=== PATIENT | female | born 1980 | race Caucasian/White ===

== ENCOUNTER 2017-12-23 08:43 | Emergency (ER) | payer MEDICAID ==
[2017-08-04 05:30] VITALS: Wt 112.9 kg
[~2017-12-23 08:43] MED LIST: ACET-1966 PO; BUTA1TAB14 PO; CEPH500T7 PO; HYDR-4309 PO; IBUP800T37 PO; ONDA4TAB PO; OXYC-865 PO; PREN-127 PO
--- NOTE | 2017-12-23 08:46 | ER Report ---
History and Physical Time Seen By MD: 08:45 HPI/ROS CHIEF COMPLAINT: Flulike symptoms, ear pain HISTORY OF PRESENT ILLNESS: Patient is 22 days of cough congestion and ear pain bilaterally and throat pain. Positive ill contacts at home which is a 4-month- old infant. Patient does not have a thermometer but reports subjective fevers. She denies chest pain she denies abdominal pain nausea vomiting or diarrhea. Allergies: Coded Allergies: No Known Drug Allergies (Unverified , 12/23/17) Home Meds Discontinued Reported Medications Vits W-Ca,Fe,Fa(<1MG) ( VITAMINS) 1 Each Tablet, 1 EACH PO DAILY, TAB 03/25/17 Discontinued Scripts Oxycodone Hcl/Acetaminophen (PERCOCET 5-325 MG TABLET) 1 Each Tablet, 1-2 TAB PO Q4H Y for pain, #40 TAB 0 Refills Prov:RADHA SNOW MD 08/04/17 Ibuprofen (IBUPROFEN) 800 Mg Tablet, 1 TAB PO Q8H Y for pain, #40 TAB 0 Refills TAKE WITH FOOD EVERY 8 HOURS Prov:RADHA SNOW MD 08/04/17 Hx Smoking: No Smoking Status: Never Smoker Exposure to Second Hand Smoke?: No Hx Substance Use Disorder: No Hx Alcohol Use: No Constitutional Vital Sign - Last 24 Hours 12/23/17 08:58 Temp 96.9 Pulse 106 Resp 14 B/P (MAP) 151/102 Pulse Ox 96 O2 Delivery Room Air Physical Exam General Appearance: The patient is alert, has no immediate need for airway protection and no current signs of toxicity. Eyes: Pupils equal and round no injection. Respiratory: Chest is non tender, lungs are clear to auscultation. Cardiac: regular rate and rhythm Gastrointestinal: Abdomen is soft and non tender, no masses, bowel sounds normal. Musculoskeletal: Neck: Neck is supple and non tender. Extremities have full range of motion and are non tender. Skin: No rashes or lesions. Medical Decision Making Data Points Laboratory Hematology Test 12/23/17 09:02 12/23/17 09:09 Influenza Virus Type A (PCR) Negative (NEGATIVE) Influenza Virus Type B (PCR) Negative (NEGATIVE) Group A Streptococcus Screen Negative (NEGATIVE) Chemistry Test 12/23/17 09:02 12/23/17 09:09 Influenza Virus Type A (PCR) Negative (NEGATIVE) Influenza Virus Type B (PCR) Negative (NEGATIVE) Group A Streptococcus Screen Negative (NEGATIVE) ED Course/Re-evaluation ED Course 12/23/2017 9:50:22 am suspect patient with viral upper respiratory infection influenza and rapid strep negative. Plan will be continued Motrin Tylenol at home. Decision to Disposition Date: Dec 23, 2017 Decision to Disposition Time: 09:51 Depart Departure Latest Vital Signs Vital Signs Date Time Temp Pulse Resp B/P (MAP) Pulse Ox O2 Delivery O2 Flow Rate FiO2 12/23/17 08:58 96.9 106 14 151/102 96 Room Air Impression: Primary Impression: Viral upper respiratory illness Condition: Improved Disposition: HOME OR SELF-CARE Referrals: RADHA SNOW MD (PCP) Departure Forms: ER Transition Record, Medications Reconciliation, Off Work/ School Form, School or Work Release?: Work Number of days to be released: 1 Patient Portal Information Patient Instructions: Upper Respiratory Infection (ED) DEBBIE SOLIZ MD Dec 23, 2017 08:46
[2017-12-23 08:58] VITALS: BP 151/102
== END 2017-12-23 10:00 | disposition home or self-care (01) ==
LOC: ER 08:45
DX: J06.9 Acute upper respiratory infection, unspecified (principal)
CPT/HCPCS: 87081; 87502; 87880; 99283

== ENCOUNTER 2017-12-28 17:06 | Emergency (ER) | payer MEDICAID ==
[2017-08-04 05:30] VITALS: Wt 106.1 kg
--- NOTE | 2017-12-28 17:56 | RADIOLOGY IMAGING REPORT ---
[place] [facility] [place] NAME: Annette Raza : 1980 MR: [id number] V: [id number] EXAM DATE: ORDERING PHYSICIAN: VIOLETTE ABEL TECHNOLOGIST: Location: [facility] - [place] Patient: Annette Raza : 1980 Visit/Account:[id number] Date of Sevice: 12/28/2017 Technique: CHEST PA AND LAT HISTORY: Cough, fever Comparison studies: None FINDINGS: There is a low degree of inspiratory effort. No lobar airspace consolidation. There is mild central peribronchial thickening. The cardiac silhouette is unremarkable. IMPRESSION: 1. Mild central peribronchial thickening which can been seen in the setting of bronchitis, asthma or tobacco usage. Report Dictated By: Manuel Brooks DO at 12/28/2017 5:49 PM Report E-Signed By: Manuel Brooks DO at 12/28/2017 5:50 PM [id number]
[2017-12-28] MEDS ORDERED: BENZ100C4 PO (18:20)
[2017-12-28] MEDS ORDERED: ALB18R INH (18:20)
--- NOTE | 2017-12-28 18:22 | ER Report ---
History and Physical Time Seen By MD: 17:05 Hx. of Stated Complaint: PATIENT WAS SEEN TUESDAY AND DIAGNOSED WITH RESPIRATORY INFECTION. PATIENT REPORTS THAT SHE HAS NOT GOTTEN ANY BETTER AND IS HAVING PAIN WITH COUGHING AND INSPIRATION HPI/ROS CHIEF COMPLAINT: Cough, fever HISTORY OF PRESENT ILLNESS: Patient is a 37-year-old female who presents the ED with complaint of cough and fever, congestion, sore throat, bilateral otalgia for the past week. She states that she was seen in the emergency department 5 days ago and did have influenza and strep screen that was negative. She states that her significant other was also seen at the emergency department and diagnosed with influenza B. She states that she has been around multiple ill contacts with very similar symptoms. She has not been taking any medication for this. She has noted some slight shortness of breath intermittently. REVIEW OF SYSTEMS: Constitutional: No fever, no chills. Eyes: No discharge. ENT: See history of present illness. Cardiovascular: No chest pain, no palpitations. Respiratory: See history of present illness. Gastrointestinal: No abdominal pain, no vomiting. Skin: No rashes. Neurological: No headache. Allergies: Coded Allergies: No Known Drug Allergies (Unverified , 12/23/17) Home Meds Active Scripts Albuterol Sulfate (VENTOLIN HFA) 18 Gm Inh, 2 PUFF INH Q4-6H Y for SHORTNESS OF BREATH, #1 INH Prov:VIOLETTE ABEL PA-C 12/28/17 Benzonatate 100 Mg Cap (TESSALON PERLE 100 MG CAP) 100 Mg Capsule, 100 MG PO TID Y for COUGH, #15 CAP Prov:VIOLETTE ABEL PA-C 12/28/17 Discontinued Reported Medications Vits W-Ca,Fe,Fa(<1MG) ( VITAMINS) 1 Each Tablet, 1 EACH PO DAILY, TAB 03/25/17 Discontinued Scripts Oxycodone Hcl/Acetaminophen (PERCOCET 5-325 MG TABLET) 1 Each Tablet, 1-2 TAB PO Q4H Y for pain, #40 TAB 0 Refills Prov:RADHA SNOW MD 08/04/17 Ibuprofen (IBUPROFEN) 800 Mg Tablet, 1 TAB PO Q8H Y for pain, #40 TAB 0 Refills TAKE WITH FOOD EVERY 8 HOURS Prov:RADHA SNOW MD 10/5/17 Reviewed Nurses Notes: Yes Old Medical Records Reviewed: Yes Hx Smoking: No Smoking Status: Never Smoker Exposure to Second Hand Smoke?: No Hx Substance Use Disorder: No Hx Alcohol Use: No Constitutional Vital Sign - Last 24 Hours 12/28/17 12/28/17 12/28/17 17:12 18:23 18:34 Temp 100.4 99.5 99.0 Pulse 110 98 Resp 20 B/P (MAP) 160/95 144/80 (101) Pulse Ox 94 91 O2 Delivery Room Air Room Air Physical Exam General Appearance: The patient is alert, has no immediate need for airway protection and no signs of toxicity. Patient appears to be no acute distress. Eyes: Pupils equal and round no pallor or injection. ENT, Mouth: Mucous membranes are moist. Respiratory: There are no retractions, lungs are clear to auscultation. Cardiovascular: Regular rate and rhythm. Gastrointestinal: Abdomen is soft and non tender, no masses, bowel sounds normal. Skin: Warm and dry, no rashes. Musculoskeletal: Neck is supple non tender. Extremities are nontender, nonswollen and have full range of motion. DIFFERENTIAL DIAGNOSIS: After history and physical exam differential diagnosis was considered for, congestion including pneumonia, influenza, upper respiratory infection, PE. Medical Decision Making EKG/Imaging Imaging CXR: IMPRESSION: 1. Mild central peribronchial thickening which can been seen in the setting of bronchitis, asthma or tobacco usage. Report Dictated By: Manuel Brooks DO at 12/28/2017 5:49 PM Report E-Signed By: Manuel Brooks DO at 12/28/2017 5:50 PM ED Course/Re-evaluation ED Course Will obtain chest x-ray. Discussed chest x-ray results with patient which is only significant for some bronchial inflammation. Given that her significant other was positive for influenza B it is likely that she also had then just had a false negative on her initial test. Will prescribe her some albuterol and Tessalon Perles to help with coughing. Decision to Disposition Date: Dec 28, 2017 Decision to Disposition Time: 18:40 Depart Departure Latest Vital Signs Vital Signs Date Time Temp Pulse Resp B/P (MAP) Pulse Ox O2 Delivery O2 Flow Rate FiO2 12/28/17 18:34 99.0 12/28/17 18:23 98 144/80 (101) 91 Room Air 12/28/17 17:12 20 Impression: Primary Impression: Upper respiratory infection Condition: Improved Disposition: HOME OR SELF-CARE Referrals: RADHA SNOW MD (PCP) New Scripts Albuterol Sulfate (VENTOLIN HFA) 18 Gm Inh 2 PUFF INH Q4-6H Y for SHORTNESS OF BREATH, #1 INH Prov: VIOLETTE ABEL PA-C 12/28/17 Benzonatate 100 Mg Cap (TESSALON PERLE 100 MG CAP) 100 Mg Capsule 100 MG PO TID Y for COUGH, #15 CAP Prov: VIOLETTE ABEL PA-C 12/28/17 Patient Instructions: Upper Respiratory Infection (ED) Additional Instructions: Stay well-hydrated. Follow-up with primary care provider in 2-3 days. If having any worsening or concerning symptoms may return to the emergency department. Problem Qualifiers Primary Impression: Upper respiratory infection URI type: unspecified URI Qualified Codes: J06.9 - Acute upper respiratory infection, unspecified VIOLETTE ABEL PA-C Dec 28, 2017 18:22
[2017-12-28 18:23] VITALS: BP 144/80
== END 2017-12-28 18:35 | disposition home or self-care (01) ==
LOC: ER 17:28
DX: J06.9 Acute upper respiratory infection, unspecified (principal)
CPT/HCPCS: 71046; 99283

== ENCOUNTER 2018-03-18 04:06 | Emergency (ER) | payer MEDICAID ==
[2017-08-04 05:30] VITALS: Wt 107.0 kg
[~2018-03-18 04:06] MED LIST changes: +ALB18R INH; +BENZ100C4 PO
--- NOTE | 2018-03-18 04:08 | ER Report ---
History and Physical Time Seen By MD: 04:08 FEI/SUNSHINE CHIEF COMPLAINT: Headache HISTORY OF PRESENT ILLNESS: 31 [id number] female presents with 2 days of severe headache. She describes it as bright frontal and throbbing. She denies history of migraine headaches per she's not had headaches that this before. She denies recent illness fever chills or vomiting. She denies stiff neck or photophobia. REVIEW OF SYSTEMS: Respiratory: No cough, no dyspnea. Cardiovascular: No chest pain, no palpitations. Gastrointestinal: No vomiting, no abdominal pain. Musculoskeletal: No back pain. Allergies: Coded Allergies: No Known Drug Allergies (Unverified , 03/18/18) Home Meds Active Scripts Ondansetron Hcl (ZOFRAN) 4 Mg Tablet, 4 MG PO Q6H Y for NAUSEA/VOMITING, #12 Prov:AUBREY BURRELL DO 03/18/18 Tramadol Hcl (TRAMADOL HCL) 50 Mg Tablet, 1 TAB PO Q6H Y for PAIN, #15 MG TAKE ONE TO TWO TABLETS BY MOUTH EVERY FOUR TO SIX HOURS NEEDED Prov:AUBREY BURRELL 03/18/18 Discontinued Scripts Albuterol Sulfate (VENTOLIN HFA) 18 Gm Inh, 2 PUFF INH Q4-6H Y for SHORTNESS OF BREATH, #1 INH Prov:VIOLETTE ABEL PA-C 12/28/17 Benzonatate 100 Mg Cap (TESSALON PERLE 100 MG CAP) 100 Mg Capsule, 100 MG PO TID Y for COUGH, #15 CAP Prov:VIOLETTE ABEL PA-C 12/28/17 Reviewed Nurses Notes: Yes Old Medical Records Reviewed: Yes Hx Smoking: No Smoking Status: Never Smoker Exposure to Second Hand Smoke?: No Hx Substance Use Disorder: No Hx Alcohol Use: No Constitutional Vital Sign - Last 24 Hours 03/18/18 03/18/18 03/18/18 03/18/18 04:12 04:13 04:30 04:51 Temp 97.9 Pulse 71 72 Resp 18 B/P (MAP) 164/107 (126) 164/107 168/107 (127) Pulse Ox 96 95 O2 Delivery Room Air 03/18/18 03/18/18 03/18/18 03/18/18 05:00 05:05 05:20 05:30 Pulse 70 83 B/P (MAP) 147/74 (98) 141/83 (102) Pulse Ox 95 03/18/18 05:35 Pulse 75 Pulse Ox 94 Physical Exam General Appearance: The patient is alert, has no immediate need for airway protection and no current signs of toxicity. Mild distress, vital signs stable , afebrile, pulse ox normal HEENT: Pupils equal and round no injection. PERRLA, EOMI, negative photophobia TMs normal, oropharynx no redness or exudate, mucous. Membranes are moist Respiratory: Chest is non tender, lungs are clear to auscultation. Cardiac: regular rate and rhythm Gastrointestinal: Abdomen is soft and non tender, no masses, bowel sounds normal. Musculoskeletal: Neck: Neck is supple and non tender. No lymphadenopathy, no meningismus Extremities have full range of motion and are non tender. Skin: No rashes or lesions. 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 Medical Decision Making Data Points Laboratory Hematology Test 03/18/18 04:10 Urine Color Straw Urine Clarity Clear Urine pH 7.0 pH (4.8-9.5) Urine Specific [place] 1.005 Urine Protein Negative mg/dL (NEGATIVE) Urine Glucose (UA) Negative mg/dL (NEGATIVE) Urine Ketones Negative mg/dL (NEGATIVE) Urine Blood Small (NEGATIVE) Urine Nitrite Negative (NEGATIVE) Urine Bilirubin Negative (NEGATIVE) Urine Urobilinogen Negative mg/dL (0.2-1.9) Urine Leukocyte Esterase Negative (NEGATIVE) Urine RBC 6 /HPF (0-2/HPF) Urine WBC <1 /HPF (0-5/HPF) Urine Squamous Epithelial Cells Few /LPF (</=FEW) Urine Bacteria Negative /HPF (NONE-FEW) Urine Mucus None /HPF (NONE-FEW) Urine HCG, Qualitative Negative (NEGATIVE) Chemistry Test 03/18/18 04:10 Urine Color Straw Urine Clarity Clear Urine pH 7.0 pH (4.8-9.5) Urine Specific [place] 1.005 Urine Protein Negative mg/dL (NEGATIVE) Urine Glucose (UA) Negative mg/dL (NEGATIVE) Urine Ketones Negative mg/dL (NEGATIVE) Urine Blood Small (NEGATIVE) Urine Nitrite Negative (NEGATIVE) Urine Bilirubin Negative (NEGATIVE) Urine Urobilinogen Negative mg/dL (0.2-1.9) Urine Leukocyte Esterase Negative (NEGATIVE) Urine RBC 6 /HPF (0-2/HPF) Urine WBC <1 /HPF (0-5/HPF) Urine Squamous Epithelial Cells Few /LPF (</=FEW) Urine Bacteria Negative /HPF (NONE-FEW) Urine Mucus None /HPF (NONE-FEW) Urine HCG, Qualitative Negative (NEGATIVE) Urinalysis Test 03/18/18 04:10 Urine Color Straw Urine Clarity Clear Urine pH 7.0 pH (4.8-9.5) Urine Specific [place] 1.005 Urine Protein Negative mg/dL (NEGATIVE) Urine Glucose (UA) Negative mg/dL (NEGATIVE) Urine Ketones Negative mg/dL (NEGATIVE) Urine Blood Small (NEGATIVE) Urine Nitrite Negative (NEGATIVE) Urine Bilirubin Negative (NEGATIVE) Urine Urobilinogen Negative mg/dL (0.2-1.9) Urine Leukocyte Esterase Negative (NEGATIVE) Urine RBC 6 /HPF (0-2/HPF) Urine WBC <1 /HPF (0-5/HPF) Urine Squamous Epithelial Cells Few /LPF (</=FEW) Urine Bacteria Negative /HPF (NONE-FEW) Urine Mucus None /HPF (NONE-FEW) Urine HCG, Qualitative Negative (NEGATIVE) EKG/Imaging Monitor Interpretation: Atrial Flutter Imaging Results: CT scan of the head was obtained. The results of the study are The study was read by the radiologist. I viewed the images myself on the PACS system. ED Course/Re-evaluation ED Course Patient was admitted to an examination room. H&P was done. The dental diagnoses was considered. Patient with a nonfocal neurologic examination. Patient was medicated for her symptoms. A CAT scan of her head was performed to rule out serious pathology. It was unremarkable the results are discussed with her. She'll be discharged home with a limited supply of medication to control nausea and pain. Patient advised to follow-up with primary care if unimproved in 3-5 days. Decision to Disposition Date: March 18, 2018 Decision to Disposition Time: 05:24 Depart Departure Latest Vital Signs Vital Signs Date Time Temp Pulse Resp B/P (MAP) Pulse Ox O2 Delivery O2 Flow Rate FiO2 03/18/18 05:35 75 94 03/18/18 05:30 141/83 (102) 03/18/18 04:13 97.9 18 Room Air Impression: Primary Impression: Headache Additional Impression: Abdominal pain Condition: Improved Disposition: HOME OR SELF-CARE Referrals: RADHA SNOW MD (PCP) MONICA TEIXEIRA MD New Scripts Ondansetron Hcl (ZOFRAN) 4 Mg Tablet 4 MG PO Q6H Y for NAUSEA/VOMITING, #12 Prov: AUBREY BURRELL DO 03/18/18 Tramadol Hcl (TRAMADOL HCL) 50 Mg Tablet 1 TAB PO Q6H Y for PAIN, #15 MG TAKE ONE TO TWO TABLETS BY MOUTH EVERY FOUR TO SIX HOURS NEEDED Prov: AUBREY BURRELL DO 03/18/18 Patient Instructions: Acute Abdominal Pain (GEN), Acute Headache (ED) Additional Instructions: Take Mucinex D for several days Follow-up with your primary care physician if unimproved in 3-5 days Problem Qualifiers Primary Impression: Headache Headache type: unspecified Headache chronicity pattern: acute headache Intractability: intractable Qualified Codes: R51 - Headache Additional Impression: Abdominal pain Abdominal location: lower abdomen, unspecified Qualified Codes: R10.30 - Lower abdominal pain, unspecified AUBREY BURRELL DO March 18, 2018 04:08
[2018-03-18] MEDS ORDERED: IBUPROFEN 600 MG TAB PO ONE (04:25)
[2018-03-18] MEDS ORDERED: DEXAMETHASONE 4 MG TAB PO ONE (04:25)
[2018-03-18] MEDS ORDERED: ONDANSETRON 4 MG ODT TABDP SL ONE (04:25)
[2018-03-18] MEDS ORDERED: APAP/HYDROCODONE 325/5 TAB PO ONE (04:25)
[2018-03-18] MEDS ORDERED: PROMETHAZINE HCL 25 MG TAB PO ONE (04:25)
--- NOTE | 2018-03-18 05:01 | RADIOLOGY IMAGING REPORT ---
FACILITY: [facility] PATIENT NAME: Annette Raza : 1980 MR: [id number] V: [id number] EXAM DATE: ORDERING PHYSICIAN: AUBREY BURRELL TECHNOLOGIST: [place] [facility] [place]: Annette Raza : 1980 Visit/Account:[id number] Date of Sevice: 03/18/2018 CT Head without contrast Indication: Headache. Comparison: None available. Technique: Axial CT images were obtained through the brain from the skull base to the vertex without administration of IV contrast. One of the following dose optimization techniques was utilized in th e performance of this exam: Automated exposure control; adjustment of the mA and/or kV according to t he patient's size; or use of an iterative reconstruction technique. Specific details can be referen corby in the facility's radiology CT exam operational policy. Findings: No evidence of mass, mass effect, or midline shift. No acute intracranial hemorrhage or acute territorial infarction. There is a small calcification in the left caudate. Skull is nonacute. Globes and orbits are normal. Mild mucosal thickening in the right The visualized paranasal sinuses and mastoid air spaces are othe rwise clear. IMPRESSION: 1. No acute intracranial abnormality. 2. Small calcification in the left caudate could be related to prior infectious or inflammatory proc ess such as neurocysticercosis. Report Dictated By: Pedro Linares MD at 03/18/2018 4:52 AM Report E-Signed By: Pedro Linares MD at 03/18/2018 4:57 AM WSN:[id number]
[2018-03-18 05:30] VITALS: BP 141/83
[2018-03-18] MEDS ORDERED: TRAM-420 PO (05:30)
[2018-03-18] MEDS ORDERED: ONDA4TAB97 PO (05:30)
== END 2018-03-18 05:42 | disposition home or self-care (01) ==
LOC: ER 04:17
DX: R51 Headache (principal); R10.30 Lower abdominal pain, unspecified
CPT/HCPCS: 70450; 81001; 81025; 99283; J8540; Q0169; S0119

== ENCOUNTER 2018-04-29 13:45 | Emergency (ER) | payer MEDICAID ==
[2017-08-04 05:30] VITALS: Wt 107.0 kg
[~2018-04-29 13:45] MED LIST changes: +ONDA4TAB97 PO; +TRAM-420 PO
--- NOTE | 2018-04-29 14:05 | ER Report ---
History and Physical Time Seen By MD: 13:55 Hx. of Stated Complaint: LEFT KNEE PAIN FOR A WEEK HPI/ROS CHIEF COMPLAINT: Left knee pain HISTORY OF PRESENT ILLNESS: Patient is a 37-year-old female who presents the ED with complaint of left knee pain. She states that she has noticed this for the past 3-4 days. She denies any acute injury. She states that the knee just feels unstable to her. She has not been applying any test conductor ice. She has not taken any medication for this. She denies any previous injury or fracture to this left knee. REVIEW OF SYSTEMS: Constitutional: No fever, no chills Cardiovascular: No chest pain, no palpitations. Respiratory: No cough, no shortness of breath. Musculoskeletal: See history of present illness. Skin: No rashes. Neurological: No headache. Allergies: Coded Allergies: No Known Drug Allergies (Unverified , 04/29/18) Home Meds Discontinued Scripts Ondansetron Hcl (ZOFRAN) 4 Mg Tablet, 4 MG PO Q6H Y for NAUSEA/VOMITING, #12 Prov:AUBREY BURRELL DO 03/18/18 Tramadol Hcl (TRAMADOL HCL) 50 Mg Tablet, 1 TAB PO Q6H Y for PAIN, #15 MG TAKE ONE TO TWO TABLETS BY MOUTH EVERY FOUR TO SIX HOURS NEEDED Prov:AUBREY BURRELL DO 03/18/18 Reviewed Nurses Notes: Yes Old Medical Records Reviewed: Yes Hx Smoking: No Smoking Status: Never Smoker Exposure to Second Hand Smoke?: No Hx Substance Use Disorder: No Hx Alcohol Use: No Constitutional Vital Sign - Last 24 Hours 04/29/18 13:50 Temp 97.9 Pulse 80 Resp 14 B/P (MAP) 158/97 Pulse Ox 95 O2 Delivery Room Air Physical Exam General Appearance: The patient is alert, has no immediate need for airway protection and no signs of toxicity. Patient appears to be in no acute distress. Respiratory: There are no retractions, lungs are clear to auscultation. Cardiovascular: Regular rate and rhythm. Skin: Warm and dry, no rashes. Musculoskeletal: Neck is supple non tender. There is left superior and lateral knee pain with palpation. Negative anterior and posterior drawer sign. Negative varus and valgus stress test. Negative Wilfrid's exam. PT and DP pulses are 2+ with normal capillary refill. Normal sensation. DIFFERENTIAL DIAGNOSIS: After history and physical exam differential diagnosis was considered for left knee injury including fracture, sprain, contusion. Medical Decision Making EKG/Imaging Imaging Left Knee Xrays: IMPRESSION: 1. Mild osteoarthritic changes involving the medial compartment of the left knee. 2. No acute appearing bony abnormalities. Report Dictated By: Freedom Ziegler MD at 04/29/2018 2:29 PM Report E-Signed By: Freedom Ziegler MD at 04/29/2018 2:31 PM ED Course/Re-evaluation ED Course Will obtain x-rays. 04/29/2018 2:40:56 pm - discussed imaging with patient. There appears to be no acute fracture dislocation of the left knee. She likely does have a left knee strain. Advised her to use a compression sleeve may take Tylenol or ibuprofen for pain relief. Decision to Disposition Date: Apr 29, 2018 Decision to Disposition Time: 14:41 Depart Departure Latest Vital Signs Vital Signs Date Time Temp Pulse Resp B/P (MAP) Pulse Ox O2 Delivery O2 Flow Rate FiO2 04/29/18 13:50 97.9 80 14 158/97 95 Room Air Impression: Primary Impression: Knee pain, left Condition: Improved Disposition: HOME OR SELF-CARE Referrals: RADHA SNOW MD (PCP) New Scripts No Active Prescriptions or Reported Meds Patient Instructions: Knee Pain (ED) Additional Instructions: Rest, ice, elevate. May use Tylenol or ibuprofen for pain relief. Use compression sleeve as needed. If having any worsening or concerning symptoms may return to the emergency department. Follow-up with primary care provider or orthopedics in 2-3 days. Problem Qualifiers Primary Impression: Knee pain, left Chronicity: acute Qualified Codes: M25.562 - Pain in left knee VIOLETTE ABEL PA-C Apr 29, 2018 14:05
--- NOTE | 2018-04-29 14:34 | RADIOLOGY IMAGING REPORT ---
FACILITY: [facility] PATIENT NAME: Annette Raza : 1980 MR: [id number] V: [id number] EXAM DATE: ORDERING PHYSICIAN: VIOLETTE ABEL TECHNOLOGIST: Location: [facility] - [place] Patient: Annette Raza : 1980 Visit/Account:[id number] Date of Sevice: 04/29/2018 KNEE 3 VIEW LEFT COMPARISONS: None. ADDITIONAL PERTINENT HISTORY: Left knee pain with injury in 2012 FINDINGS: Osseous structures: Mild subchondral sclerosis and osteophyte formation involving the medial compartm ent of the left knee. No bony fractures. Joint spaces: Mild joint space narrowing involving the medial compartment of the left knee. Surrounding soft tissues: Negative. IMPRESSION: 1. Mild osteoarthritic changes involving the medial compartment of the left knee. 2. No acute appearing bony abnormalities. Report Dictated By: Freedom Ziegler MD at 04/29/2018 2:29 PM Report E-Signed By: Freedom Ziegler MD at 04/29/2018 2:31 PM [id number]
[2018-04-29 14:48] VITALS: BP 139/90
== END 2018-04-29 14:40 | disposition home or self-care (01) ==
LOC: ER 13:48
DX: M25.562 Pain in left knee (principal)
CPT/HCPCS: 99283

== ENCOUNTER 2018-05-04 22:05 | Emergency (ER) | payer MEDICAID ==
[2017-08-04 05:30] VITALS: Wt 106.6 kg
--- NOTE | 2018-05-04 22:06 | ER Report ---
History and Physical Time Seen By MD: 22:06 HPI/ROS CHIEF COMPLAINT: Left-sided headache HISTORY OF PRESENT ILLNESS: Patient is a 38-year-old female here with complaints of left-sided headache which started this morning and has been persistent in spite of taking her home medications. She was previously evaluated for similar complaints however today her headache seemed to be worse, in the same distribution, associated with photosensitivity. Patient also complains of nausea with vomiting. She was treated for her headache previously and resolved. Denies fevers, neck pain, back pain, chest pain or shortness breath. CT scan was completed of the head previously and showed no intracranial abnormalities. REVIEW OF SYSTEMS: Constitutional: No fever, no chills. Eyes: No discharge, + photosensitivity ENT: No sore throat. Cardiovascular: No chest pain, no palpitations. Respiratory: No cough, no shortness of breath. Gastrointestinal: No abdominal pain, no vomiting. Genitourinary: No hematuria. Musculoskeletal: No back pain. Skin: No rashes. Neurological: + headache. Allergies: Coded Allergies: No Known Drug Allergies (Unverified , 05/04/18) Home Meds Active Scripts Ondansetron (ZOFRAN ODT) 4 Mg Tab.rapdis, 4 MG PO Q12H for 7 Days, #14 TAB.JOY Prov:PETAR CHÁVEZ DO 05/05/18 Discontinued Scripts Ondansetron Hcl (ZOFRAN) 4 Mg Tablet, 4 MG PO Q6H Y for NAUSEA/VOMITING, #12 Prov:AUBREY BURRELL DO 03/18/18 Tramadol Hcl (TRAMADOL HCL) 50 Mg Tablet, 1 TAB PO Q6H Y for PAIN, #15 MG TAKE ONE TO TWO TABLETS BY MOUTH EVERY FOUR TO SIX HOURS NEEDED Prov:AUBREY BURRELL DO 03/18/18 Hx Smoking: No Smoking Status: Never Smoker Exposure to Second Hand Smoke?: No Hx Substance Use Disorder: No Hx Alcohol Use: No Constitutional Vital Sign - Last 24 Hours 05/04/18 05/04/18 05/04/18 05/04/18 22:11 22:20 22:30 22:35 Temp 98.2 Pulse 78 79 72 Resp 20 B/P (MAP) 144/85 141/82 (101) Pulse Ox 96 96 95 O2 Delivery Room Air 05/04/18 05/04/18 05/04/1805/04/18 22:50 23:00 23:05 23:20 Pulse 73 77 76 B/P (MAP) 134/69 (90) Pulse Ox 95 94 97 05/04/18 05/04/18 05/04/18 05/05/18 23:30 23:35 23:50 00:00 Pulse 84 80 B/P (MAP) 123/92 (102) 141/98 (112) Pulse Ox 96 97 05/05/18 05/05/18 05/05/18 05/05/18 00:20 00:30 00:35 00:50 Pulse 74 78 78 B/P (MAP) 146/88 (107) Pulse Ox 95 94 95 05/05/18 05/05/18 01:00 01:20 Pulse 81 B/P (MAP) 145/87 (106) Pulse Ox 96 Physical Exam General Appearance: The patient is alert, has no immediate need for airway protection and no signs of toxicity. + moderate distress due to pain/headache Eyes: Pupils equal and round no pallor or injection. ENT, Mouth: Mucous membranes are moist. Respiratory: There are no retractions, lungs are clear to auscultation. Cardiovascular: Regular rate and rhythm. Gastrointestinal: Abdomen is soft and non tender, no masses, bowel sounds normal. Neurological: No focal deficits or weakness Skin: Warm and dry, no rashes. Musculoskeletal: Neck is supple non tender. Extremities are nontender, nonswollen and have full range of motion. DIFFERENTIAL DIAGNOSIS: After history and physical exam differential diagnosis was considered for migraine, tension headache, traumatic headache, electrolyte imbalance. Medical Decision Making EKG/Imaging Imaging CT head deferred due to recent imaging scan ED Course/Re-evaluation ED Course Patient is a 38-year-old female here with complaints of left-sided headache similar to prior headaches. Patient also has nausea, photosensitivity, vomiting associated with this. Denies fevers or chills. Patient was given migraine cocktail including fluids, Decadron, magnesium, Benadryl, Reglan with moderate relief of symptoms. Patient was advised to maintain hydration. She was also advised to follow-up with her family doctor in the next several days and return if her symptoms worsen or fail to improve. Decision to Disposition Date: May 05, 2018 Decision to Disposition Time: 01:13 Depart Departure Latest Vital Signs Vital Signs Date Time Temp Pulse Resp B/P (MAP) Pulse Ox O2 Delivery O2 Flow Rate FiO2 05/05/18 01:20 81 96 05/05/18 01:00 145/87 (106) 05/04/18 22:11 98.2 20 Room Air Impression: Primary Impression: Headache Condition: Improved Disposition: HOME OR SELF-CARE Referrals: RADHA SNOW MD (PCP) New Scripts Ondansetron (ZOFRAN ODT) 4 Mg Tab.rapdis 4 MG PO Q12H for 7 Days, #14 TAB.JOY Prov: PETAR CHÁVEZ DO 05/05/18 Patient Instructions: Acute Headache (ED), Ondansetron (By mouth, Into the mouth) Additional Instructions: You may take 1 tablet of Zofran as needed every 8-12 hours for nausea. Please follow-up with your family doctor in the next several days. If symptoms persist , he may need to be seen by neurology for more effective headache regimen. Please return if you develop fevers, neck pain, worsening headache, difficulty eating or drinking. PETAR CHÁVEZ DO May 04, 2018 22:06
[2018-05-04] MEDS ORDERED: KETOROLAC 30 MG/ML VIAL IVP ONE (23:10)
[2018-05-04] MEDS ORDERED: diphenhydrAMINE 50 MG/ML VIAL IVP ONE (23:10)
[2018-05-04] MEDS ORDERED: NS(*) 0.9% 1000 ML BAG 1,000 ML IV ONE (23:10)
[2018-05-04] MEDS ORDERED: DEXAMETHASONE SOD PHOS 10MG/ML IVP ONE (23:10)
[2018-05-04] MEDS ORDERED: METOCLOPRAMIDE 10 MG/2 ML SDV IVP ONE (23:10)
[2018-05-05] MEDS ORDERED: MAGNESIUM SUL* 2 GM/50 ML IVPB 50 ML IVPB ONE (00:20)
[2018-05-05 01:00] VITALS: BP 145/87
[2018-05-05] MEDS ORDERED: ONDA4TAB PO (01:17)
== END 2018-05-05 01:31 | disposition home or self-care (01) ==
LOC: ER 22:07
DX: R51 Headache (principal)
CPT/HCPCS: 96361; 96365; 96374; 96375; 99284; J1100; J1200; J1885; J2765; J3475; J7030

== ENCOUNTER 2018-12-21 16:17 | Emergency (ER) | payer MEDICAID ==
[2017-08-04 05:30] VITALS: BMI 39.8
[~2018-12-21 16:17] MED LIST changes: -HYDR-4309 PO; +HYDR-653 PO
--- NOTE | 2018-12-21 16:24 | ER Report ---
History and Physical Time Seen By MD: 16:24 HPI/ROS CHIEF COMPLAINT: Left-sided tender neck lymph node, midepigastric abdominal discomfort, nausea HISTORY OF PRESENT ILLNESS: Patient is a 38-year-old female here with complaints of the above. Patient reports that her symptoms started approximately 3 days ago not been intermittent. She reports that her left cervical lymph node has been swollen and tender and less mobile than the right prompting concern. Patient admits to nausea, decreased appetite, intermittent midepigastric abdominal pain with bilateral radiation which lasts for several minutes at a time. Patient reports general malaise, fatigue, subjective fevers. REVIEW OF SYSTEMS: Constitutional: + fever, no chills. Eyes: No discharge. ENT: No sore throat. + tendern cervical adenopathy Cardiovascular: No chest pain, no palpitations. Respiratory: No cough, no shortness of breath. Gastrointestinal: + epigastric abdominal pain, no vomiting. + decreased appetite Genitourinary: No hematuria. Musculoskeletal: No back pain. Skin: No rashes. Neurological: No headache. Allergies: Coded Allergies: No Known Drug Allergies (Unverified , 12/21/18) Home Meds Active Scripts Metoclopramide Hcl (REGLAN) 10 Mg Tablet, 10 MG PO Q8H for Nausea, #20 TAB Prov:PETAR CHÁVEZ DO 12/21/18 Tramadol Hcl (TRAMADOL HCL) 50 Mg Tablet, 50 MG PO Q6H PRN for PAIN, #12 TAB 0 R efills Prov:PETAR CHÁVEZ DO 12/21/18 Discontinued Scripts Ondansetron (ZOFRAN ODT) 4 Mg Tab.rapdis, 4 MG PO Q12H for 7 Days, #14 TAB.JOY Prov:PETAR CHÁVEZ DO 05/05/18 Hx Smoking: No Smoking Status: Never Smoker Exposure to Second Hand Smoke?: No Hx Substance Use Disorder: No Hx Alcohol Use: No Constitutional Vital Sign - Last 24 Hours 12/21/18 16:30 Temp 97.7 Pulse 100 Resp 13 B/P (MAP) 178/118 Pulse Ox 98 O2 Delivery Room Air Physical Exam General Appearance: The patient is alert, has no immediate need for airway protection and no signs of toxicity. NAD Eyes: Pupils equal and round no pallor or injection. ENT, Mouth: Mucous membranes are moist.+ tender cervical adenopathy worse on left Respiratory: There are no retractions, lungs are clear to auscultation. Cardiovascular: Regular rate and rhythm. Gastrointestinal: Abdomen is soft and + mildly tender in the mid epigastrium, no masses, bowel sounds normal. Neurological: No focal deficits Skin: Warm and dry, no rashes. Musculoskeletal: Neck is supple non tender. Extremities are nontender, nonswollen and have full range of motion. DIFFERENTIAL DIAGNOSIS: After history and physical exam differential diagnosis was considered for adult fever including but not limited to viral syndromes including influenza, urinary tract infection, pneumonia and sepsis, mononucleosis, pancreatitis, gastroenteritis Medical Decision Making Data Points Result Diagram: 12/21/18 1715 12/21/18 1715 Laboratory Hematology Test 12/21/18 16:43 12/21/18 17:15 12/21/18 17:51 Influenza Virus Type A (PCR) Negative (NEGATIVE) Influenza Virus Type B (PCR) Negative (NEGATIVE) Group A Streptococcus (PCR) Negative (NEGATIVE) Red Blood Count 4.67 M/uL (4.17-5.56) Mean Corpuscular Volume 85.3 fL (80.0-96.0) Mean Corpuscular Hemoglobin 28.2 pg (26.0-33.0) Mean Corpuscular Hemoglobin Concent 33.0 g/dL (32.0-36.0) Red Cell Distribution Width 15.0 % (11.5-14.5) Mean Platelet Volume 7.6 fL (7.2-11.1) Neutrophils (%) (Auto) 69.5 % (39.4-72.5) Lymphocytes (%) (Auto) 23.2 % (17.6-49.6) Monocytes (%) (Auto) 4.7 % (4.1-12.4) Eosinophils (%) (Auto) 2.0 % (0.4-6.7) Basophils (%) (Auto) 0.6 % (0.3-1.4) Nucleated RBC Relative Count (auto) 0.0 /100WBC Neutrophils # (Auto) 8.4 K/uL (2.0-7.4) Lymphocytes # (Auto) 2.8 K/uL (1.3-3.6) Monocytes # (Auto) 0.6 K/uL (0.3-1.0) Eosinophils # (Auto) 0.2 K/uL (0.0-0.5) Basophils # (Auto) 0.1 K/uL (0.0-0.1) Nucleated RBC Absolute Count (auto) 0.00 K/uL Sodium Level 138 mmol/L (137-145) Potassium Level 3.6 mmol/L (3.5-5.0) Chloride Level 106 mmol/L (98-107) Carbon Dioxide Level 24 mmol/L (22-31) Blood Urea Nitrogen 8 mg/dl (7-18) Creatinine 0.60 mg/dl (0.52-1.04) Glomerular Filtration Rate Calc > 60.0 Random Glucose 117 mg/dl (75-110) Calcium Level 8.1 mg/dl (8.4-10.2) Total Bilirubin 0.3 mg/dl (0.2-1.3) Aspartate Amino Transf (AST/SGOT) 22 U/L (0-35) Alanine Aminotransferase (ALT/SGPT) 23 U/L (0-56) Alkaline Phosphatase 93 U/L (0-126) Total Protein 7.0 g/dl (6.3-8.2) Albumin 3.8 g/dl (3.5-5.0) Lipase 242 U/L (23-300) Human Chorionic Gonadotropin, Qual Negative (NEGATIVE) Monoscreen Negative (NEGATIVE) Urine Color Yellow Urine Clarity Clear Urine pH 5.0 pH (4.8-9.5) Urine Specific [place] 1.019 Urine Protein Negative mg/dL (NEGATIVE) Urine Glucose (UA) Negative mg/dL (NEGATIVE) Urine Ketones Negative mg/dL (NEGATIVE) Urine Blood Moderate (NEGATIVE) Urine Nitrite Negative (NEGATIVE) Urine Bilirubin Negative (NEGATIVE) Urine Urobilinogen Negative mg/dL (0.2-1.9) Urine Leukocyte Esterase Trace (NEGATIVE) Urine RBC 1 /HPF (0-2/HPF) Urine WBC <1 /HPF (0-5/HPF) Urine Squamous Epithelial Cells Many /LPF (</=FEW) Urine Bacteria Negative /HPF (NONE-FEW) Urine Mucus Few /HPF (NONE-FEW) Chemistry Test 12/21/18 16:43 12/21/18 17:15 12/21/18 17:51 Influenza Virus Type A (PCR) Negative (NEGATIVE) Influenza Virus Type B (PCR) Negative (NEGATIVE) Group A Streptococcus (PCR) Negative (NEGATIVE) White Blood Count 12.1 k/uL (4.5-11.0) Red Blood Count 4.67 M/uL (4.17-5.56) Hemoglobin 13.2 g/dL (12.0-16.0) Hematocrit 39.8 % (34.0-47.0) Mean Corpuscular Volume 85.3 fL (80.0-96.0) Mean Corpuscular Hemoglobin 28.2 pg (26.0-33.0) Mean Corpuscular Hemoglobin Concent 33.0 g/dL (32.0-36.0) Red Cell Distribution Width 15.0 % (11.5-14.5) Platelet Count 365 K/uL (150-450) Mean Platelet Volume 7.6 fL (7.2-11.1) Neutrophils (%) (Auto) 69.5 % (39.4-72.5) Lymphocytes (%) (Auto) 23.2 % (17.6-49.6) Monocytes (%) (Auto) 4.7 % (4.1-12.4) Eosinophils (%) (Auto) 2.0 % (0.4-6.7) Basophils (%) (Auto) 0.6 % (0.3-1.4) Nucleated RBC Relative Count (auto) 0.0 /100WBC Neutrophils # (Auto) 8.4 K/uL (2.0-7.4) Lymphocytes # (Auto) 2.8 K/uL (1.3-3.6) Monocytes # (Auto) 0.6 K/uL (0.3-1.0) Eosinophils # (Auto) 0.2 K/uL (0.0-0.5) Basophils # (Auto) 0.1 K/uL (0.0-0.1) Nucleated RBC Absolute Count (auto) 0.00 K/uL Glomerular Filtration Rate Calc > 60.0 Calcium Level 8.1 mg/dl (8.4-10.2) Total Bilirubin 0.3 mg/dl (0.2-1.3) Aspartate Amino Transf (AST/SGOT) 22 U/L (0-35) Alanine Aminotransferase (ALT/SGPT) 23 U/L (0-56) Alkaline Phosphatase 93 U/L (0-126) Total Protein 7.0 g/dl (6.3-8.2) Albumin 3.8 g/dl (3.5-5.0) Lipase 242 U/L (23-300) Human Chorionic Gonadotropin, Qual Negative (NEGATIVE) Monoscreen Negative (NEGATIVE) Urine Color Yellow Urine Clarity Clear Urine pH 5.0 pH (4.8-9.5) Urine Specific [place] 1.019 Urine Protein Negative mg/dL (NEGATIVE) Urine Glucose (UA) Negative mg/dL (NEGATIVE) Urine Ketones Negative mg/dL (NEGATIVE) Urine Blood Moderate (NEGATIVE) Urine Nitrite Negative (NEGATIVE) Urine Bilirubin Negative (NEGATIVE) Urine Urobilinogen Negative mg/dL (0.2-1.9) Urine Leukocyte Esterase Trace (NEGATIVE) Urine RBC 1 /HPF (0-2/HPF) Urine WBC <1 /HPF (0-5/HPF) Urine Squamous Epithelial Cells Many /LPF (</=FEW) Urine Bacteria Negative /HPF (NONE-FEW) Urine Mucus Few /HPF (NONE-FEW) Urinalysis Test 12/21/18 17:51 Urine Color Yellow Urine Clarity Clear Urine pH 5.0 pH (4.8-9.5) Urine Specific [place] 1.019 Urine Protein Negative mg/dL (NEGATIVE) Urine Glucose (UA) Negative mg/dL (NEGATIVE) Urine Ketones Negative mg/dL (NEGATIVE) Urine Blood Moderate (NEGATIVE) Urine Nitrite Negative (NEGATIVE) Urine Bilirubin Negative (NEGATIVE) Urine Urobilinogen Negative mg/dL (0.2-1.9) Urine Leukocyte Esterase Trace (NEGATIVE) Urine RBC 1 /HPF (0-2/HPF) Urine WBC <1 /HPF (0-5/HPF) Urine Squamous Epithelial Cells Many /LPF (</=FEW) Urine Bacteria Negative /HPF (NONE-FEW) Urine Mucus Few /HPF (NONE-FEW) ED Course/Re-evaluation ED Course Patient is a 38-year-old female here with complaints of tender cervical lymphadenopathy, general malaise, midepigastric discomfort, nausea 3 days. Decision was made to administer normal saline bolus, Reglan for symptom management. CT imaging was initially held while labs were ordered to rule out viral etiology. [place], strep and flu were found to be negative. Patient did have a leukocytosis of 12,000 however other labs were otherwise unremarkable. I discussed the findings with the patient and advised her that if her urinalysis came back unremarkable, she would need to follow-up in the next 24-48 hours with her PCP. Return precautions provided. Patient was written prescription for tramadol and Reglan for symptom management and advised to take NSAIDs for swallowing and anti-inflammatory properties. Patient voiced understanding of plan. Urinalysis was unremarkable. Decision to Disposition Date: Dec 21, 2018 Decision to Disposition Time: 18:04 Depart Departure Latest Vital Signs Vital Signs Date Time Temp Pulse Resp B/P (MAP) Pulse Ox O2 Delivery O2 Flow Rate FiO2 12/21/18 16:30 97.7 100 13 178/118 98 Room Air Impression: Primary Impression: Abdominal pain Additional Impression: Neck pain Condition: Improved Disposition: HOME OR SELF-CARE Referrals: RADHA SNOW MD (PCP) New Scripts Metoclopramide Hcl (REGLAN) 10 Mg Tablet 10 MG PO Q8H for Nausea, #20 TAB Prov: PETAR CHÁVEZ DO 12/21/18 Tramadol Hcl (TRAMADOL HCL) 50 Mg Tablet 50 MG PO Q6H PRN for PAIN, #12 TAB 0 Refills Prov: PETAR CHÁVEZ DO 12/21/18 Patient Instructions: Abdominal Pain (ED) Additional Instructions: Please drink plenty of water. Please return immediately if she develop worsening abdominal pain, fevers, difficulty swallowing, nausea, vomiting. Please take NSAIDs or ibuprofen for anti-inflammatory properties. You may take Reglan one pill every 6-8 hours as needed for nausea control and tramadol 1 tablet every 6- 8 hours as needed for breakthrough pain. Please follow-up with your family doctor in the next 24-48 hours for reevaluation. Problem Qualifiers PETAR CHÁVEZ DO Dec 21, 2018 16:24
[2018-12-21] MEDS ORDERED: NS(*) 0.9% 1000 ML BAG 1,000 ML IV ONE (16:40)
[2018-12-21] MEDS ORDERED: METOCLOPRAMIDE 10 MG/2 ML SDV IVP ONE (16:40)
[2018-12-21 17:19] LABS: PLATELET COUNT, AUTOMATED 365 K/uL (150-450)
[2018-12-21 18:00] VITALS: BP 153/109
[2018-12-21] MEDS ORDERED: TRAM-420 PO (18:02)
[2018-12-21] MEDS ORDERED: METO-734 PO (18:02)
== END 2018-12-21 18:17 | disposition home or self-care (01) ==
LOC: ER 16:31
DX: R10.13 Epigastric pain (principal); M54.2 Cervicalgia
CPT/HCPCS: 81001; 83690; 84703; 85025; 86308; 87502; 87653; 96361; 96374; 99283; J2765; J7030; 82040; 82247; 82310; 82374; 82435; 82565; 82947; 84075; 84132; 84155; 84295; 84450; 84460; 84520